=== PATIENT | female | born 1995 | race Caucasian/White ===

== ENCOUNTER 2019-04-24 09:41 | Day surgery (SDC) | payer OTHER, MEDICAID ==
[~2019-04-24] VITALS: Ht 157.5 cm; Wt 55.0 kg
[2019-04-24] MEDS ORDERED: LACTATED RINGERS 1,000 ML IV SCH (10:26)
[2019-04-24] MEDS ORDERED: LIDOCAINE-MPF 1%, 2ML INFIL ONE (10:30)
[2019-04-24] MEDS ORDERED: [UNRECOGNIZED DRUG - OTHER] PO (10:31)
[2019-04-24] MEDS ORDERED: ONDA4TAB7 PO (10:31)
[2019-04-24] MEDS ORDERED: PROBIOTIC PO (10:31)
[2019-04-24 10:42] VITALS: BP 126/86
[2019-04-24 10:52] LABS: HCG UR SG 1.018 (1.003-1.030)
[2019-04-24] MEDS ORDERED: BUPIVACAINE/PF 0.5% ONE (11:17)
[2019-04-24] MEDS ORDERED: MIDAZOLAM 1 MG/ML, 2ML ONE ×2 (11:22→11:36)
[2019-04-24] MEDS ORDERED: FENTANYL PF 100 MCG/2ML ONE ×3 (11:26→12:51)
[2019-04-24] MEDS ORDERED: PROMETHAZINE 25 MG/ML, 1ML IV PRN (11:30)
[2019-04-24] MEDS ORDERED: ONDANSETRON ODT 8 MG PO PRN (11:30)
[2019-04-24] MEDS ORDERED: ALBUTEROL SULFATE 2.5 MG/3 ML NPPB PRN (11:30)
[2019-04-24] MEDS ORDERED: hydrALAzine 20 MG/ML, 1ML IV PRN (11:30)
[2019-04-24] MEDS ORDERED: OXYcodone 5 MG/5 ML ORAL.SOL UDC PO PRN (11:30)
[2019-04-24] MEDS ORDERED: DIAZEPAM 5 MG/ML, 2ML IVPush PRN (11:30)
[2019-04-24] MEDS ORDERED: ACETAMINOPHEN 325 MG TABLET PO PRN (11:30)
[2019-04-24] MEDS ORDERED: MEPERIDINE/PF 25MG/ML,1ML IVPush PRN (11:30)
[2019-04-24] MEDS ORDERED: LABETALOL 5MG/ML, 20ML IV PRN (11:30)
[2019-04-24] MEDS ORDERED: PROMETHAZINE 12.5 MG SUPP PR PRN (11:30)
[2019-04-24] MEDS ORDERED: HALOPERIDOL 5 MG/ML IV PRN (11:30)
[2019-04-24] MEDS ORDERED: EPHEDRINE 50 MG/ML, 1ML IVPush PRN (11:30)
[2019-04-24] MEDS ORDERED: ONDANSETRON 2MG/ML, 2ML IV PRN (11:30)
[2019-04-24] MEDS ORDERED: FENTANYL PF 100 MCG/2ML IV PRN (11:30)
[2019-04-24] MEDS ORDERED: MIDAZOLAM 1 MG/ML, 2ML IV PRN (11:30)
[2019-04-24] MEDS ORDERED: HYDROmorphone 2 MG/ML, 1ML IVPush PRN (11:30)
[2019-04-24] MEDS ORDERED: DEXAMETHASONE 4 MG/ML, 1ML ONE ×3 (11:33→11:36)
[2019-04-24] MEDS ORDERED: PROPOFOL 10 MG/ML, 20ML ONE ×2 (11:33→11:36)
[2019-04-24] MEDS ORDERED: CEFAZOLIN 1,000 MG ONE ×3 (11:33→11:36)
[2019-04-24] MEDS ORDERED: FENTANYL PF 250 MCG/5ML ONE (11:36)
[2019-04-24] MEDS ORDERED: ONDANSETRON 2MG/ML, 2ML ONE ×3 (11:36→11:57)
[2019-04-24] MEDS ORDERED: ACETAMINOPHEN 650 MG/20.3 ML UDC ONE (12:51)
[2019-04-24] MEDS ORDERED: OXYcodone 5 MG/5 ML ORAL.SOL UDC ONE (12:51)
== END 2019-04-24 14:05 | disposition home or self-care (01) ==
LOC: OUT 09:41
PROVIDERS: ATTEND Surgery
DX: R22.31 Localized swelling, mass and lump, right upper limb (principal); D21.11 Benign neoplasm of connective and other soft tissue of right upper limb, including shoulder; K90.0 Celiac disease; F12.90 Cannabis use, unspecified, uncomplicated; Z87.891 Personal history of nicotine dependence; Z91.018 Allergy to other foods
CPT/HCPCS: 24075; 81025; 88305; J0690; J1100; J2250; J2405; J2704; J3010; J7120